=== PATIENT | female | born 1985 | race African-American/Black ===

== ENCOUNTER 2024-06-05 14:48 | Emergency (ER) | payer OTHER ==
[~2024-06-05] VITALS: Ht 160 cm; Wt 63.5 kg
[2024-06-05 16:27] LABS: BASO% 0.3 % (0-3); EOS% 0.5 % (0-8); HEMATOCRIT 42.3 % (37.0-47.0); HEMOGLOBIN 13.1 g/dl (12.0-16.0); IMMATURE GRANULOCYTES 0.2 % (0.0-5.0); LYMPH% 15.2 % (15-41); MEAN CORPUSCULAR HGB 28.5 pG CALC (26.0-32.0); MONO% 6.3 % (2-13); NEUT# 4.45 thou/uL (2.00-7.15); NEUT% 77.5 % (42-76); RED BLOOD COUNT 4.6 mill/uL (4.20-5.60); RED CELL DISTRI WIDTH 13.8 % (11.5-15.5)
[2024-06-05 16:40] LABS: BILIRUBIN, TOTAL 1.2 mg/dL (0.02-1.3); CREATININE 0.7 mg/dL (0.5-1.0); POTASSIUM 4.4 mmol/l (3.5-5.1); TOTAL PROTEIN 8.6 g/dL (6.3-8.2)
[2024-06-05] MEDS ORDERED: CLINDAMYCIN300 M1 PO (18:42)
[2024-06-05 19:40] VITALS: BP 118/68
== END 2024-06-05 19:40 | disposition home or self-care (01) | DRG 159 ==
LOC: ED 14:48
PROVIDERS: Family Medicine
DX: S02.5XXA Fracture of tooth (traumatic), initial encounter for closed fracture (principal); S00.83XA Contusion of other part of head, initial encounter; V43.62XA Car passenger injured in collision with other type car in traffic accident, initial encounter